=== PATIENT | male | born 1955 | race Caucasian/White ===

== ENCOUNTER → 2018-10-14 | Outpatient (CLI) | payer SELFPAY ==
--- NOTE | 2018-10-14 13:56 | RAD ---
ABDOMEN LTD History: Right upper quadrant pain for one day, alcoholic Comparison: None. Findings: Multiple sonographic images of the abdomen are submitted. Midline structures including pancreas and inferior vena cava are not well visualized due to bowel gas. Gallbladder is present, internal dependent echogenicity likely sludge. Gallbladder is slightly distended. There is reportedly a positive sonographic Pozo's sign. Gallbladder wall is not thickened. Common bile duct is within normal limits at 0.5 cm. There is coarsening of the hepatic echotexture. Right lobe of the liver measured 17.3 cm longitudinal. Right kidney measured 10.4 x 6.4 x 6.9 cm, no hydronephrosis. Impression: 1. There is gallbladder sludge, gallbladder slightly distended and nonspecific positive sonographic Pozo's sign. However there is no significant gallbladder wall thickening more biliary ductal dilatation. 2. There is hepatic steatosis. Electronically signed by: Marcell Stockton MD (10/14/2018 1:53 PM) [facility]
== END | disposition home or self-care (01) ==
LOC: DXRAD 13:00
PROVIDERS: ATTEND Family Medicine
DX: K76.0 Fatty (change of) liver, not elsewhere classified (principal); K82.8 Other specified diseases of gallbladder
CPT/HCPCS: 76705